=== PATIENT | male | born 1960 | race Caucasian/White ===

== ENCOUNTER 2017-10-28 07:45 | Day surgery (SDC) | payer BC ==
[2017-10-28] VITALS (11 sets, daily range): BP systolic 120–138; BP diastolic 64–83
[~2017-10-28] VITALS: Ht 188 cm; Wt 100.2 kg
--- NOTE | 2017-10-28 07:41 | Pre-Procedure Note/Attestation ---
Pre-Procedure Note/Attestation Complete Prior to Procedure Planned Procedure: right - Anterior chamber wash out, right eye Attestation I attest that I discussed the nature of the procedure; its benefits; risks and complications; and alternatives (and the risks and benefits of such alternatives ), prior to the procedure, with the patient (or the patient's legal auto service representative). I attest that, if there was a reasonable possibility of needing a blood transfusion, the patient (or the patient's legal auto service representative) was given the [facility] standardized written summary, pursuant to the Basilio Vincent Blood Safety Act ([place] Health and Safety Code # 1645, as amended). I attest that I re-evaluated the patient just prior to the surgery and that there has been no change in the patient's H&P, except as documented below: Rodrigo Hernandez MD Oct 28, 2017 07:41
[2017-10-28] MEDS ORDERED: ACYCLOVIR400 MG ORAL (08:28)
[2017-10-28] MEDS ORDERED: NORCO 5-325 TA1 EAC1 ORAL (08:28)
[2017-10-28] MEDS ORDERED: FENTANYL1 EAC5 TD (08:28)
[2017-10-28] MEDS ORDERED: Pred Forte 1% Opth Susp 1ml RIGHT EYE ONE (08:40)
[2017-10-28] MEDS ORDERED: Ciprofloxacin Opth Soln 2.5ml RIGHT EYE ONE (08:40)
[2017-10-28] MEDS ORDERED: Ciprofloxacin Opth Soln 2.5ml ONE (08:45)
[2017-10-28] MEDS ORDERED: Pred Forte 1% Opth Susp 1ml ONE (08:45)
[2017-10-28] MEDS ORDERED: Akten 3.5% 1ml Btl ONE (08:51)
[2017-10-28] MEDS ORDERED: fentaNYL 100 mcg/2 mL IV ONE (09:00)
[2017-10-28] MEDS ORDERED: Sterile Water Irrig 1000ml IRRIG ONE (09:00)
[2017-10-28] MEDS ORDERED: NS Irrig 1000ml ONE (09:00)
[2017-10-28] MEDS ORDERED: Midazolam 2mg/2ml Inj ONE (09:00)
[2017-10-28] MEDS ORDERED: LR 1000ml ONE (09:00)
[2017-10-28] MEDS ORDERED: LR 1000ml 1,000 ML IVLG SCH (09:44)
--- NOTE | 2017-10-28 09:44 | Anethesia Preoperative Eval ---
Anesthesia Pre-op PMH/ROS General Date of Evaluation: Oct 28, 2017 Time of Evaluation: 09:08 Anesthesiologist: Casper ASA Score: ASA 2 Mallampati Score Class I : Soft palate, uvula, fauces, pillars visible Class II: Soft palate, uvula, fauces visible Class III: Soft palate, base of uvula visible Class IV: Only hard plate visible Mallampati Classification: Class II Surgeon: Mary Diagnosis: R eye Hyphema Surgical Procedure: R eye anterior chamber washing Anesthesia History: none Social History: current smoker Family History: no anesthesia problems Allergies: Coded Allergies: PENICILLINS (Verified Allergy, Unknown, 10/28/17) Medications: see eMAR Past Medical History Cardiovascular: Reports: HTN - mild, Denies: CAD, OR, valve dz, arrhythmia, other Pulmonary: Denies: asthma, COPD, PIER[place], other Gastrointestinal/Genitourinary: Reports: GERD, Denies: CRI, ESRD, other Neurologic/Psychiatric: Reports: depression/anxiety, other - chronic pain on high dose opioids, Denies: dementia, CVA, TIA Endocrine: Denies: DM, hypothyroidism, steroids, other HEENT: Denies: cataract (L), cataract (R), glaucoma, [place] (L), [place] (R), other Hematology/Immune: Denies: anemia, DVT, bleeding disorder, other Musculoskeletal/Integumentary: Denies: OA, RA, DJD, DDD, edema, other PMH Narrative: as above PSxH Narrative: Lumbar laminectomy Anesthesia Pre-op Phys. Exam Physician Exam Last Vital Signs Date Time Temp Pulse Resp B/P (MAP) Pulse Ox O2 Delivery O2 Flow Rate FiO2 10/28/17 08:28 97.8 60 16 123/83 98 Room Air Constitutional: NAD Neurologic: CN 2-12 intact Cardiovascular: RRR, no M/R/G Respiratory: CTA Gastrointestinal: S/NT/ND Airway Exam Mallampati Score: Class II MO: full Neck: flexible ROM: limited Teeth: missing Dentures: no upper, no lower Anesthesia Pre-op A/P Labs see chart Studies Pre-op Studies: EKG - NSR Risk Assessment & Plan Assessment: ASA 2 Plan: MAC Status Change Before Surgery: No Pre-Antibiotics Drug: none ASHLEY ALVARADO M.D. Oct 28, 2017 09:44
[2017-10-28] MEDS ORDERED: Meperidine 50mg/ml Inj(FOR RIGORS ONLY) IV PRN (09:45)
[2017-10-28] MEDS ORDERED: DiphenhydrAMINE 50mg/ml Inj IVP PRN (09:45)
[2017-10-28] MEDS ORDERED: Ketorolac 30mg Inj IV PRN (09:45)
[2017-10-28] MEDS ORDERED: BSS 15ml BTL ONE ×4 (09:46→10:49)
[2017-10-28] MEDS ORDERED: Propofol 200mg/20ml IV ONE (10:11)
[2017-10-28] MEDS ORDERED: Fluorescein Strips ONE (10:44)
[2017-10-28] MEDS ORDERED: acetaZOLAMIDE 500mg Inj ONE (10:45)
--- NOTE | 2017-10-28 11:08 | Immediate Post-Op Evaluation ---
Immediate Post-Op Evalulation Immediate Post-Op Evalulation Procedure: Evacuation of R eye hyphema Date of Evaluation: Oct 28, 2017 Time of Evaluation: 11:07 IV Fluids: 800 Blood Products: none Estimated Blood Loss: min Urinary Output: none Blood Pressure Systolic: 127 Blood Pressure Diastolic: 78 Pulse Rate: 64 Respiratory Rate: 20 O2 Sat by Pulse Oximetry: 99 Temperature (Fahrenheit): 97.9 Pain Score (1-10): 2 Nausea: No Vomiting: No Complications none Patient Status: reacts, patent, none Hydration Status: adequate ASHLEY ALVARADO M.D. Oct 28, 2017 11:08
--- NOTE | 2017-10-28 11:34 | Discharge Instructions ---
Discharge Instructions Discharge Instructions Follow Up Orders Wear patch and shield on right eye Followup tomorrow in Dr Hernandez's office For Congestive Heart Failure Reminder Report to your physician any weight gain of 5 pounds or more in one week. Rodrigo Hernandez MD Oct 28, 2017 11:34
--- NOTE | 2017-10-28 11:39 | Brief Operative Note ---
Immediate Post Operative Note Operative Note Pre-op Diagnosis: Hyphema, right eye Procedure: Washout of Hyphema, right eye lysis of posterior synechiae, right eye removal of pupillary membranes, right eye removal of intraocular tissue foreign body, right eye Post-op Diagnosis: Hyphema, right eye Posterior synechiae, right eye Removal of intraocular foreign body tissue, right eye Removal of pupillary membranes, right eye Post-op Diagnosis: same as pre-op plus Surgeon: Annalisa Hernandez MD Additional Surgeons: none Anesthesiologist: Dr Shirley Anesthesia: local, MAC Specimen: yes - Intraocular white foreign body tissue Complications: none Fluids: as noted in chart Implant(s) used?: No Rodrigo Hernandez MD Oct 28, 2017 11:39
--- NOTE | 2017-10-28 12:03 | 48 Hour Post Anesthesia Eval ---
Post Anesthesia Evaluation Procedure: Evacuation of R eye hyphema Date of Evaluation: Oct 28, 2017 Time of Evaluation: 12:01 Blood Pressure Systolic: 128 0: 62 Pulse Rate: 74 Respiratory Rate: 22 Temperature (Fahrenheit): 97.8 O2 Sat by Pulse Oximetry: 99 Airway: patent Nausea: No Vomiting: No Pain Intensity: 2 Hydration Status: adequate Cardiopulmonary Status: stable Follow-up Care/Observations: n/a Post-Anesthesia Complications: none Follow-up care needed: ready to discharge ASHLEY ALVARADO M.D. Oct 28, 2017 12:02
[2017-10-28] MEDS ORDERED: Bupivacaine 0.75% 30ml vial INJ ONE (12:28)
[2017-10-28] MEDS ORDERED: Lidocaine 1% MPF 10mg/ml 5ml ONE (12:28)
[2017-10-28] MEDS ORDERED: Lidocaine 2% MPF 5ml Vial INJ ONE (12:28)
[2017-10-28] MEDS ORDERED: Sodium Hyaluronate 10 mg/ml 0.85ml ONE (12:29)
[2017-10-28] MEDS ORDERED: Povidone-Iodine 5% opth solution ONE (12:29)
--- NOTE | 2017-11-02 22:30 | Operative Note - Dictated ---
DATE OF OPERATION: 10/28/2017 SURGEON: Rodrigo Hernandez M.D. COLLABORATIVE PHYSICIAN SURGEON: None. ANESTHESIOLOGIST: Mitchell Shirley M.D. ANESTHESIA: Local/standby/monitored anesthesia care. PREOPERATIVE DIAGNOSIS: Hyphema, right eye. POSTOPERATIVE DIAGNOSES: 1. Hyphema, right eye. 2. Posterior synechiae, right eye. 3. Pupillary membrane, right eye. 4. Intraocular tissue foreign body, right eye. SPECIMENS: The tissue formation from the pupil was sent to pathology. COMPLICATIONS: None. INDICATIONS FOR SURGERY: The patient had recurrent hyphema that has persisted and then has intermittent increased pressures that had been controlled with drops and pills. The patient understands the risks of surgery including infection, bleeding, need for further surgery, loss of vision, no improvement in vision, loss of the eye, loss of , glaucoma, retinal detachment. He understands these risks and elects to proceed with surgery. FINDINGS: The patient had a recurrent hyphema that was able to be irrigated and washed out, but also he had a white piece of tissue within the pupil that was removed and sent to pathology. In addition, he had posterior synechia for almost 360 degrees that was lysed. A peripheral iridotomy was also performed at the end of the procedure #4 and #5 peripheral iridotomy. Complications . OPERATIVE NOTE: After informed consent was obtained, . Time-out was performed and all criteria were met and everyone in the room agreed. The right eye was then draped and prepped in a sterile manner for ocular surgery. A lid speculum was placed in the eye. Packings were placed onto the eye, but the patient is at this point. He is constantly moving and procedure. A retrobulbar block followed by modified Van Lint block was then given. The lid speculum was placed back in the right eye. He was somewhat more comfortable and a paracentesis was made at approximately 3 o'clock and then also at approximately 2 o'clock and then at 6 o'clock. The hyphema was able to be irrigated free, but then I was able to see that there was a piece of tissue within the pupil. I used a 25-gauge retinal forceps to try and remove this all after placing [place]on. This was removed and sent to pathology. There was nearly 360 degrees of posterior synechiae and using a gently, we then lysed these without touching the anterior capsule. There was a fibrinous scarring on the anterior capsule within the pupillary margin though. This was where the tissue was attached to it almost. A small peripheral iridotomy was performed at approximately 2 o'clock. The anterior chamber was clear and deep and quiet at the end of the procedure, and a 10-0 nylon interrupted sutures were placed at the 9 o'clock paracentesis as well as the 6 o'clock paracentesis. The lid speculum and drapes were removed from the eye and drops of Pred Forte and ciprofloxacin were applied to the eye followed by Maxitrol ointment then two patches and a shield. The patient tolerated the procedure well and left the operating room awake, alert, and in stable condition. Rodrigo Hernandez M.D. DR: MONIQUE JOB#: [id number] CC:
== END 2017-10-28 12:35 | disposition home or self-care (01) ==
LOC: SUR 07:45
DX: H21.01 Hyphema, right eye (principal); H21.501 Unspecified adhesions of iris, right eye; S05.51XA Penetrating wound with foreign body of right eyeball, initial encounter; X58.XXXA Exposure to other specified factors, initial encounter; Y93.9 Activity, unspecified; Y92.9 Unspecified place or not applicable; I10 Essential (primary) hypertension; K21.9 Gastro-esophageal reflux disease without esophagitis; F32.9 Major depressive disorder, single episode, unspecified; F41.9 Anxiety disorder, unspecified; G89.29 Other chronic pain; Z88.0 Allergy status to penicillin; F17.200 Nicotine dependence, unspecified, uncomplicated
CPT/HCPCS: 65205; 87070; 87075; 87205; J1120; J1885; J2250; J2704; J3010; J3490; J7120; 94003; 94150